=== PATIENT | male | born 1935 | race Caucasian/White ===

== ENCOUNTER 2019-04-05 09:49 | Outpatient (CLI) | END 2019-04-05 09:50 | disposition home or self-care (01) | LOC: RHC-LAB 09:49 → FCC-LAB 09:50 | PROVIDERS: ATTEND Family Medicine | DX: R53.81 Other malaise (principal); E78.5 Hyperlipidemia, unspecified | CPT/HCPCS: 36415; 80053; 80061; 82607; 84443; 85025 ==